=== PATIENT | female | born 1930 | race African-American/Black ===

== ENCOUNTER 2018-05-21 13:16 | Emergency (ER) | payer OTHER ==
[~2018-05-21] VITALS: Ht 162.6 cm; Wt 100.0 kg
[~2018-05-21 13:16] MED LIST: ALBU18HF2; AMLO2.5T45; ATEN-176; FLUT50DI; FURO-151; LISI40TA4; MOME13HF2; POTA10TA42
[2018-05-21 14:33] LABS: BASOPHILS % 0.3 % (0.0-2.0); EOSINOPHILS % 2.6 % (0.0-5.0); HEMATOCRIT. 47.8 % (36.0-48.0); HEMOGLOBIN. 15.7 g/dL (12.0-16.0); LYMPHOCYTES % 32.4 % (20.0-50.0); MEAN CORPUSCULAR HEMOGLOBIN 30.8 pg (28.0-32.0); MEAN CORPUSCULAR VOLUME 93.9 fL (81.0-99.0); MEAN PLATELET VOLUME 7.7 fl (7.4-10.4); MONOCYTES % 7.1 % (2.0-8.0); NEUTROPHILS % 57.6 % (40.0-76.0); PLATELET 286 x1000/uL (130-400); RED BLOOD CELL COUNT 5.09 mill/uL (4.2-5.4); RED CELL DISTRIBUTION WIDTH 14.7 % (11.6-14.6)
[2018-05-21] MEDS ORDERED: ALBUTEROL (0.083%) 2.5MG/3ML NEB HHN STA (14:36)
[2018-05-21] MEDS ORDERED: IPRATROPIUM BROMIDE (0.02%) 0.5MG/2.5ML NEB HHN STA (14:36)
[2018-05-21] MEDS ORDERED: METHYLPREDNISOLONE SOD SUCC 125 MG/2 ML VIAL IV STA (14:36)
[2018-05-21 14:39] LABS: CHLORIDE 103 mEq/L (98-107)
[2018-05-21] MEDS ORDERED: IPRATROPIUM BROMIDE (0.02%) 0.5MG/2.5ML NEB ONE (14:55)
[2018-05-21] MEDS ORDERED: ALBUTEROL (0.5%) 2.5MG/0.5ML NEB HHN ONE (14:55)
[2018-05-21] MEDS ORDERED: ALBUTEROL (0.083%) 2.5MG/3ML NEB ONE (14:55)
[2018-05-21 18:03] VITALS: BP 157/85
[2018-05-21] MEDS ORDERED: POTASSIUM CHLORIDE 20MEQ/PACKET PO ONE (18:15)
== END 2018-05-21 18:41 | disposition home or self-care (01) ==
LOC: ER 13:16
DX: J01.90 Acute sinusitis, unspecified (principal); J45.901 Unspecified asthma with (acute) exacerbation; J06.9 Acute upper respiratory infection, unspecified; Z88.8 Allergy status to other drugs, medicaments and biological substances
CPT/HCPCS: 36415; 71045; 80053; 83605; 83880; 84484; 85025; 93005; 94640; 96374; 99284; J2930; J7611